=== PATIENT | male | born 1990 | race Two or more races ===

== ENCOUNTER 2024-04-13 21:28 | Observation (INO) | payer MEDICAID, SELFPAY ==
[2024-04-13 21:46] VITALS: BP 162/100; PULSE 110; TEMP 36.8; O2SAT 99; BMI 24.4
--- NOTE | 2024-04-13 22:16 | ED_ITS ---
HPI - Abdominal Pain General Chief Complaint: Abdominal Pain Stated Complaint: Abdominal Pain Time Seen by Provider: 04/13/24 21:35 Source: patient and family Mode of arrival: walk-in Limitations: no limitations History of Present Illness HPI narrative: This 33-year-old male who had a heart transplant in 2003 due to hypertrophic cardiomyopathy at [facility] presents for evaluation of generalized abdominal pain with nausea and vomiting. The patient states he thinks he had a bad steak last Sunday. He states he thought the date on it was April 19 but it was March 19 however his states it was in the freezer. Since that time he has had nausea and vomiting. He has been having a hard time keeping anything down. He urinated earlier today and it was very dark. He states at times his vomitus has been yellow like bile. He has not had any diarrhea. He has been taking Pepto-Bismol to try to cool his stomach down. He denies any chest pain or shortness of breath. He has generalized abdominal pain which is greatest in the epigastrium and right upper quadrant. He states he has had stomach issues in the past that were similar but never this bad. He has not had a fever. He does not drink alcohol. He has not had any jaundice. Related Data Home Medications ?Medication ?Instructions ?Recorded ?Confirmed amlodipine 10 mg tablet mg 04/13/24 cetirizine 10 mg tablet mg 04/13/24 duloxetine 30 mg capsule,delayed mg PO 04/13/24 release escitalopram oxalate 10 mg tablet mg 04/13/24 famotidine 20 mg tablet mg 04/13/24 levothyroxine 50 mcg tablet mcg 04/13/24 mycophenolate mofetil 500 mg tablet PO 04/13/24 simvastatin 10 mg tablet mg 04/13/24 tacrolimus 0.5 mg capsule, mg 04/13/24 immediate-release Allergies Allergy/AdvReac Type Severity Reaction Status Date / Time NSAIDS (Non-Steroidal Allergy Unknown Verified 04/13/24 21:49 Anti-Inflamma Penicillins Allergy Unknown Verified 04/13/24 21:49 Review of Systems ROS Status of ROS 10 or more systems reviewed and unremark able except as noted in history and below Exam Narrative Exam Narrative: Vital signs and Nursing Notes reviewed: He is afebrile, he is tachycardic with a pulse of 110 and blood pressure is elevated at 162/100, he is not hypoxic with pulse ox of 99% on room air General: Awake, alert, oriented, no acute distress, lying comfortably on the stretcher, no active vomiting HEENT: Normocephalic atraumatic, oral mucosa is dry, no scleral icterus noted Neck: Supple, no meningeal signs, no anterior or posterior cervical lymphadenopathy Chest: Lungs are clear to auscultation with good air entry, there is no wheezing rhonchi or rales appreciated no accessory muscle use, patient is speaking in complete sentences-no chest wall tenderness to palpation. Large healed sternotomy incision status post cardiac transplant in 2003 CVS: Regular rate and rhythm S1-S2, cardiac at triage at 110, no murmurs rubs or gallops, pulses are brisk and equal bilaterally ABD: Soft, flat, mildly distended, decreased bowel sounds, there is tenderness in the epigastrium and right upper quadrant with voluntary guarding. No right lower quadrant tenderness appreciated Extremities: Moving all extremities, no lower extremity tenderness or swelling noted, negative Homans' sign, pulses are brisk and equal bilaterally Skin: Normal in appearance without rash,pallor, petechiae or purpura Neuro: No focal deficits Constitutional Vital Signs, click to edit/add: Last Vital Signs Temp 98.2 F 04/13/24 21:46 Pulse 110 H 04/13/24 21:46 Resp 18 04/13/24 21:46 BP 138/72 04/14/24 01:26 Pulse Ox 99 04/13/24 21:46 O2 Del Method Room Air 04/13/24 21:46 Course Vital Signs Vital signs: Vital Signs Temperature 98.2 F 04/13/24 21:46 Pulse Rate 110 H 04/13/24 21:46 Respiratory Rate 18 04/13/24 21:46 Blood Pressure 162/100 H 04/13/24 21:46 Pulse Oximetry 99 04/13/24 21:46 Oxygen Delivery Method Room Air 04/13/24 21:46 Temperature 98.2 F 04/13/24 21:46 Pulse Rate 110 H 04/13/24 21:46 Respiratory Rate 18 04/13/24 21:46 Blood Pressure 138/72 04/14/24 01:26 Pulse Oximetry 99 04/13/24 21:46 Oxygen Delivery Method Room Air 04/13/24 21:46 MDM - Abdominal Pain MDM Narrative Medical decision making narrative: This 33-year-old male who is status post heart transplant in 2003 due to hypertrophic cardiomyopathy presents for evaluation of nausea vomiting and abdominal pain. He thinks that he ate a bad steak last week but has been having nausea vomiting and upper abdominal pain since that time. He has not had any diarrhea. He denies any chest pain or shortness of breath. He has not had a fever. He was tender in his epigastrium and right upper quadrant. He is allergic to NSAIDs. An IV was placed and he was medicated with IV fluids, Zofran and morphine as well as Pepcid. On reevaluation he appeared much more comfortable. Routine labs are reviewed. He has an elevated white count of 18.6. He has a normal hemoglobin. Electrolytes are normal. Lipase is normal. Lactic acid is normal. Alkaline phosphatase was elevated at 125 with remainder of his liver function tests are normal. CT scan of the abdomen pelvis shows findings consistent with acute cholecystitis with several gallstones in the gallbladder and gallbladder wall thickening with surrounding inflammatory changes with a normal common bile duct. This was discussed with Dr. Brown, general surgery on-call. He requested that he receive IV Rocephin and IV Flagyl in the emergency department and admission to the hospitalist service for further surgical evaluation and treatment. Medical Records Medical records narrative: The [address] [address] [address] Scan Report Signed Patient: ARTHUR MCCRARY MR#: [id number] : 1990 Acct:[id number] Age/Sex: 33 / M ADM Date: 04/13/24 Loc: ER Attending Dr: Ordering Physician: Nichole Colón Date of Service: 04/13/24 Procedure(s): CT abdomen pelvis w con Accession Number(s): [id number] cc: GLENN WALKER D.O.~ The [address] [address] Patient Name: ARTHUR MCCRARY MRN: [id number] date: 1990 Sex: M Assigned Patient Location: ER Current Patient Location: ER Accession/Order Number: [id number] Exam Date: 04/13/2024 23:15 Report Date: 04/14/2024 00:42 At the request of: NICHOLE MARKER Procedure: CT abdomen pelvis w con EXAM: CT abdomen pelvis w con HISTORY: abd pain, RUQ, epigastrium COMPARISON: None. TECHNIQUE: CT of abdomen and pelvis with intravenous contrast Dose reduction techniques were achieved by using automated exposure control and/or adjustment of mA and/or kV according to patient size and/or use of iterative reconstruction technique. FINDINGS: TUBES AND IMPLANTS: None. LOWER CHEST: Small hiatal hernia. ABDOMEN and PELVIS ABDOMINAL WALL AND SOFT TISSUES: Unremarkable. BONES: No suspicious lesions. Mild degenerative changes of the spine. ARTERIES: Unremarkable. VEINS: Unremarkable. LYMPH NODES: Unremarkable. PERITONEUM/ RETROPERITONEUM: Unremarkable. BOWEL: No obstruction. Mild diverticulosis. APPENDIX: Unremarkable LIVER: No suspicious lesions. GALLBLADDER: Large gallstone by the gallbladder neck measuring 1.9 centimeters. Multiple additional large layering gallstones. Severe gallbladder wall thickening and surrounding inflammatory changes. BILE DUCTS: Mild intrahepatic biliary ductal dilatation. The common bile duct is not dilated. SPLEEN: Unremarkable. PANCREAS: Unremarkable. ADRENALS: Unremarkable. KIDNEYS/ URETERS: No stones or hydronephrosis. Small left renal cyst. REPRODUCTIVE ORGANS: Unremarkable URINARY BLADDER: Unremarkable. CT/CT abdomen pelvis w con IMPRESSION: Findings compatible with acute cholecystitis. Mild intrahepatic biliary ductal dilatation. The common bile duct is not dilated. Mild diverticulosis. Small hiatal hernia. Electronically authenticated by: JOHN SHAH Date: 04/14/2024 00:42 Lab Data Attestation: I reviewed the patient's lab results. (Patient has an elevated white count at 18.6, normal lactic acid, alk phos is elevated remainder of LFTs and lipase are normal) Labs: Lab Results 04/13/24 Range/Units 22:00 WBC 18.6 H (4.0-11.0) 10^3/uL RBC 4.83 (4.70-6.10) 10^6/uL Hgb 14.8 (14.0-18.0) g/dL Hct 43.8 (42.0-54.0) % MCV 90.7 (80.0-94.0) fL MCH 30.6 (25.9-34.0) pg MCHC 33.8 (29.9-35.2) g/dL RDW 12.5 (11.0-15.0) % Plt Count 200 (150-450) 10^3/uL MPV 12.9 (9.5-13.5) fL Neut % (Auto) 88.6 H (43.0-75.0) % Lymph % (Auto) 5.9 L (20.5-60.0) % [place] % (Auto) 4.5 (1.7-12.0) % Eos % (Auto) 0.2 L (0.9-7.0) % Baso % (Auto) 0.3 (0.2-2.0) % Neut # (Auto) 16.5 H (1.4-6.5) 10^3/uL Lymph # (Auto) 1.1 L (1.2-3.8) 10^3/uL [place] # (Auto) 0.8 (0.3-0.8) 10^3/uL Eos # (Auto) 0.0 (0.0-0.7) 10^3/uL Baso # (Auto) 0.1 (0.0-0.1) 10^3/uL Abs Immat Gran (auto) 0.10 H (0.00-0.03) 10^3/uL Imm/Tot Granulo (auto) 0.5 (0.0-0.5) % Sodium 136 (136-145) mmol/L Potassium 4.1 (3.5-5.1) mmol/L Chloride 100 (98-107) mmol/L Carbon Dioxide 24.9 (21.0-32.0) mmol/L Anion Gap 15.2 BUN 14.0 (7.0-18.0) mg/dL Creatinine 0.77 (0.70-1.30) mg/dL Est GFR ( Amer) >60 (>=60) Est GFR (Non-Af Amer) >60 (>=60) BUN/Creatinine Ratio 18.2 Glucose 90 (74-106) mg/dL Lactate 1.2 (0.4-2.0) mmol/L Calcium 8.9 (8.5-10.1) mg/dL Total Bilirubin 1.0 (0.2-1.0) mg/dL AST 32 (15-37) U/L ALT 39 (16-63) U/L Alkaline Phosphatase 125 H (46-116) U/L Total Protein 8.2 (6.4-8.2) g/dL Albumin 3.0 L (3.4-5.0) g/dL Globulin 5.2 g/dL Albumin/Globulin Ratio 0.6 Lipase 26.0 (16.0-77.0) U/L ECG Data Attestation: I personally reviewed and interpreted this ECG as follows: (Sinus tachycardia 109 bpm, right bundle branch block, left axis deviation, no acute ST segment elevation or T wave inversion) Discharge Plan Discharge Chief Complaint: Abdominal Pain Clinical Impression: Acute cholecystitis Patient Disposition: Admitted as Observation Time of Disposition Decision: 01:10 Condition: Good
[2024-04-13] MEDS: FAMOTIDINE/PF 20 MG/2 ML VIAL IV (22:40)
[2024-04-13] MEDS: 0.9 % SODIUM CHLORIDE 1,000 ML 1000 ML IV (22:40)
[2024-04-13] MEDS: MORPHINE SULFATE 4 MG/ML VIAL IV (22:40)
[2024-04-13] MEDS: ONDANSETRON PF 4 MG/2 ML VIAL IV (22:40)
[2024-04-13 22:47] LABS: Basophils Absolute Auto 0.1 10^3/uL (0.0-0.1); Basophils Percent Auto 0.3 % (0.2-2.0); Eosinophils Percent Auto 0.2 % (0.9-7.0); Hematocrit 43.8 % (42.0-54.0); Hemoglobin 14.8 g/dL (14.0-18.0); Immature Granulocytes Pct Auto 0.5 % (0.0-0.5); Lymphocytes Absolute Auto 1.1 10^3/uL (1.2-3.8); Lymphocytes Percent Auto 5.9 % (20.5-60.0); Mean Corpuscular HGB Conc 33.8 g/dL (29.9-35.2); Mean Corpuscular Hemoglobin 30.6 pg (25.9-34.0); Mean Corpuscular Volume 90.7 fL (80.0-94.0); Mean Platelet Volume 12.9 fL (9.5-13.5); Monocytes Absolute Auto 0.8 10^3/uL (0.3-0.8); Monocytes Percent Auto 4.5 % (1.7-12.0); Neutrophils Absolute Auto 16.5 10^3/uL (1.4-6.5); Neutrophils Percent Auto 88.6 % (43.0-75.0); Platelet Count 200 10^3/uL (150-450); Red Blood Count 4.83 10^6/uL (4.70-6.10); Red Cell Distribution Width 12.5 % (11.0-15.0); White Blood Count 18.6 10^3/uL (4.0-11.0)
[2024-04-13 23:03] LABS: Lactate/Lactic Acid 1.2 mmol/L (0.4-2.0)
[2024-04-13 23:10] LABS: Alanine Aminotransferase 39 U/L (16-63); Albumin Globulin Ratio 0.6; Alkaline Phosphatase 125 U/L (46-116); Anion Gap 15.2; Aspartate Amino Transferase 32 U/L (15-37); BUN Creatinine Ratio 18.2; Calcium 8.9 mg/dL (8.5-10.1); Carbon Dioxide 24.9 mmol/L (21.0-32.0); Chloride 100 mmol/L (98-107); Estimated GFR (African America >60 (>=60); Estimated GFR (Non-African Ame >60 (>=60); Globulin 5.2 g/dL; Glucose 90 mg/dL (74-106); Potassium 4.1 mmol/L (3.5-5.1); Sodium 136 mmol/L (136-145); Total Protein 8.2 g/dL (6.4-8.2)
[2024-04-14] VITALS (16 sets, daily range): BP systolic 127–152; BP diastolic 72–87; PULSE 92–119; TEMP 36.4–37.3; O2SAT 92–96; BMI 24.2
--- NOTE | 2024-04-14 01:06 | ECG_ITS ---
The [facility] Test Date: 2024-04-14 Pat Name: ARTHUR MCCRARY Department: Room: - Gender: Male [place] Head: : 1990 Requested By: GLENN WALKER Order Number: [id number] Reading MD: TAVON KELLY Measurements Intervals [place] Rate: 109 P: 65 MS: 138 QRS: -38 QRSD: 162 T: 69 QT: 392 QTc: 456 Interpretive Statements 1120 Sinus tachycardia 2450 Right bundle branch block 7200 Abnormal left axis deviation 9150 abnormal ECG No previous ECG available for comparison Electronically Signed On 04-15-2024 8:50:48 EDT by TAVON KELLY
[2024-04-14] MEDS: CEFTRIAXONE 1,000 MG in 0.9 % SODIUM CHLORIDE 50 ML 100 MG IV ×2 (01:16→14:38)
[2024-04-14] MEDS: METRONIDAZOLE/SODIUM CHLORIDE 500 MG/100 ML PREMIX 100 MG IV (02:00)
[2024-04-14 02:17] LABS: Bilirubin Urine NEGATIVE (NEGATIVE); Blood Urine TRACE-I (NEGATIVE); Clarity Urine CLEAR (CLEAR); Color Urine YELLOW (YELLOW); Glucose Urine UA NEGATIVE (NEGATIVE); Ketones Urine 40 mg/dL (NEGATIVE); Leukocyte Esterase Urine NEGATIVE (NEGATIVE); Nitrite Urine NEGATIVE (NEGATIVE); Protein Urine 30 mg/dL (NEG/TRACE); pH Urine 6.5 (5.0-9.0)
[2024-04-14 02:30] LABS: Bacteria Urine NONE SEEN #/HPF (NONE SEEN); Mucus Urine SMALL (NONE SEEN); RBC Urine NONE SEEN #/HPF (0-2); Squamous Epithelial Cell Urine NONE SEEN #/LPF (NONE/RARE); WBC Urine 0-2 #/HPF (NONE SEEN)
[2024-04-14 02:31] LABS: Cast Seen? SEEN #/LPF (NONE SEEN); Crystals Seen? None Seen #/HPF (None Seen); Fine Granular Casts Urine FEW; Hyaline Casts Urine FEW; Urine Culture Indicated NO; White Blood Cell Casts Urine FEW
[2024-04-14] MEDS: DEXTROSE 5%-0.9% NACL 1,000 ML 1,000 ML 100 ML IV (02:49)
[2024-04-14] MEDS: MORPHINE SULFATE 2 MG/ML SYRINGE IV (04:52)
[2024-04-14 05:41] LABS: Basophils Absolute Auto 0.1 10^3/uL (0.0-0.1); Basophils Percent Auto 0.4 % (0.2-2.0); Eosinophils Absolute Auto 0.2 10^3/uL (0.0-0.7); Eosinophils Percent Auto 1.2 % (0.9-7.0); Hematocrit 41.8 % (42.0-54.0); Hemoglobin 13.7 g/dL (14.0-18.0); Immature Granulocytes Abs Auto 0.05 10^3/uL (0.00-0.03); Immature Granulocytes Pct Auto 0.4 % (0.0-0.5); Lymphocytes Absolute Auto 1.4 10^3/uL (1.2-3.8); Lymphocytes Percent Auto 10.4 % (20.5-60.0); Mean Corpuscular HGB Conc 32.8 g/dL (29.9-35.2); Mean Corpuscular Hemoglobin 30.2 pg (25.9-34.0); Mean Corpuscular Volume 92.3 fL (80.0-94.0); Mean Platelet Volume 12.2 fL (9.5-13.5); Monocytes Absolute Auto 0.8 10^3/uL (0.3-0.8); Neutrophils Absolute Auto 11.3 10^3/uL (1.4-6.5); Neutrophils Percent Auto 81.6 % (43.0-75.0); Platelet Count 187 10^3/uL (150-450); Red Blood Count 4.53 10^6/uL (4.70-6.10); Red Cell Distribution Width 12.4 % (11.0-15.0); White Blood Count 13.8 10^3/uL (4.0-11.0)
[2024-04-14 05:51] LABS: Alanine Aminotransferase 105 U/L (16-63); Albumin Globulin Ratio 0.6; Albumin Level 2.7 g/dL (3.4-5.0); Alkaline Phosphatase 193 U/L (46-116); Anion Gap 12.5; Aspartate Amino Transferase 103 U/L (15-37); BUN Creatinine Ratio 12.3; Bilirubin Total 1.7 mg/dL (0.2-1.0); Calcium 8.4 mg/dL (8.5-10.1); Carbon Dioxide 28.1 mmol/L (21.0-32.0); Chloride 102 mmol/L (98-107); Estimated GFR (African America >60 (>=60); Estimated GFR (Non-African Ame >60 (>=60); Globulin 4.5 g/dL; Glucose 102 mg/dL (74-106); Potassium 3.6 mmol/L (3.5-5.1); Sodium 139 mmol/L (136-145); Total Protein 7.2 g/dL (6.4-8.2)
--- NOTE | 2024-04-14 06:17 | PM.GSCN ---
History of Present Illness Consult details Consult date: 04/14/24 Reason for consult: gallstones Requesting physician: Nichole Colón Narrative: 33 y/o male presented to ED with complaints of abdominal pain located in the epigastrium right upper quadrant since Sunday after he ate a steak with he thought he had food poisoning from. He admitted to nausea and vomiting and mild fever and chills. He was found to have an elevated white blood count of 18,000 which is down to 13,000 this morning. His liver enzymes were normal last night but this morning he has a slightly elevated bilirubin of 1.7 and alkaline phosphatase is in the 140s as well as other transaminases are elevated. He feels better this morning. His significant medical history is that he has had an open heart transplant performed at the [facility] in 2003 and takes rejection drugs. He sees a media relations intern once a year. He denies any chest pains or shortness of breath but it does hurt to take a deep breath. He is currently unemployed. 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 He denies any tobacco or alcohol use. CT scan of the abdomen and pelvis shows acute cholecystitis with a stone stuck in the fundus of the gallbladder with multiple other small stones seen. There was no common bile duct stone seen or any common bile duct dilatation noted on the CT scan. Review of Systems ROS Status of ROS 10 or more systems reviewed and unremarkable except as noted in history and below [facility] Medical History (Updated 04/14/24 @ 07:37 by Link Brown MD) Hypertrophic cardiomyopathy ?I42.2 - Other hypertrophic cardiomyopathy (ICD-10) Surgical History (Updated 04/14/24 @ 07:37 by Link Brown MD) History of heart transplant ?Z94.1 - Heart transplant status (ICD-10) Heart transplanted ?Z94.1 - Heart transplant status (ICD-10) Family History Mother Family history of CHF (congestive heart failure) Family history of diabetes mellitus Family history of hypertension Social History Within the past year, how often did you have a drink containing alcohol: never Score interpretation: A score less than 4 is consistent with normal alcohol consumption. Smoking status: Former smoker Non-prescribed substance use: denies use Previous occupational history: none Highest level of school completed/degree received: 9th grade Are you now , , , , never or living with a partner: never In a typical week, how many times do you talk on the telephone with family, friends, or neighbors: twice per week How often do you get together with friends or relatives: once per week How often do you attend mandaen or congregation services: never Little interest or pleasure in doing things: not at all Feeling down, depressed, or hopeless: not at all Feel stressed/tense/nervous/anxious/difficulty sleeping: not at all Due to disability, difficulty making decisions: No Do you think of yourself as: straight/heterosexual Gender Identity: male Meds Home Medications and Allergies Home Medications ?Medication ?Instructions ?Recorded ?Confirmed ?Type amlodipine 10 mg tablet 5 mg PO BID 04/13/24 04/14/24 History cetirizine 10 mg tablet 10 mg PO [facility] 04/13/24 04/14/24 History duloxetine 30 mg capsule,delayed 30 mg PO [facility] 04/13/24 04/14/24 History release escitalopram oxalate 10 mg tablet 15 mg PO [facility] 04/13/24 04/14/24 History famotidine 20 mg tablet 20 mg PO BID 04/13/24 04/14/24 History levothyroxine 50 mcg tablet 50 mcg PO [facility] 04/13/24 04/14/24 History mycophenolate mofetil 500 mg tablet 500 mg PO Q12H 04/13/24 04/14/24 History simvastatin 10 mg tablet 10 mg PO [facility] 04/13/24 04/14/24 History tacrolimus 1 mg capsule, 1 mg PO Q12H 04/14/24 04/14/24 History immediate-release Allergies Allergy/AdvReac Type Severity Reaction Status Date / Time NSAIDS (Non-Steroidal Allergy Unknown Verified 04/13/24 21:49 Anti-Inflamma Penicillins Allergy Unknown Verified 04/13/24 21:49 Exam Constitutional Vital Signs, click to edit/add: Last Vital Signs Temp 98.0 F 04/14/24 04:59 Pulse 98 H 04/14/24 04:59 Resp 20 04/14/24 04:59 BP 132/81 04/14/24 04:59 Pulse Ox 96 04/14/24 04:59 O2 Del Method Room Air 04/14/24 04:59 Documenting provider has reviewed patient's vital signs: yes Common normals: no apparent distress, average body habitus, oriented x3, no limitations, healthy appearing, alert and well nourished [facility] Common normals: normocephalic and head/scalp atraumatic Eye Common normals: PERRL, EOMs intact bilaterally and no scleral icterus Respiratory Common normals: clear to auscultation bilaterally Cardio Common normals: regular rate and regular rhythm GI Common normals: Normal to inspection, nondistended, normoactive bowel sounds present and soft to palpation Palpation: guarding in the RUQ Extremity Common normals: normal to inspection and full ROM Neuro Common normals: oriented x3, CN's II-XII intact bilaterally, moves all extremities and no focal motor deficits Results Labs Labs: Abnormal lab results 04/13/24 04/14/24 04/14/24 Range/Units 22:00 01:47 04:25 WBC 18.6 H 13.8 H (4.0-11.0) 10^3/uL RBC 4.53 L (4.70-6.10) 10^6/uL Hgb 13.7 L (14.0-18.0) g/dL Hct 41.8 L (42.0-54.0) % Neut % (Auto) 88.6 H 81.6 H (43.0-75.0) % Lymph % (Auto) 5.9 L 10.4 L (20.5-60.0) % Eos % (Auto) 0.2 L (0.9-7.0) % Neut # (Auto) 16.5 H 11.3 H (1.4-6.5) 10^3/uL Lymph # (Auto) 1.1 L (1.2-3.8) 10^3/uL Abs Immat Gran (auto) 0.10 H 0.05 H (0.00-0.03) 10^3/uL Calcium 8.4 L (8.5-10.1) mg/dL Total Bilirubin 1.7 H (0.2-1.0) mg/dL AST 103 H (15-37) U/L ALT 105 H (16-63) U/L Alkaline Phosphatase 125 H 193 H (46-116) U/L Albumin 3.0 L 2.7 L (3.4-5.0) g/dL Urine Protein 30 A (NEG/TRACE) mg/dL Urine Ketones 40 A (NEGATIVE) mg/dL Urine WBC 0-2 A (NONE SEEN) #/HPF Urine Casts Seen A (NONE SEEN) #/LPF Urine Mucus Small A (NONE SEEN) Diabetes panel 04/13/24 04/14/24 Range/Units 22:00 04:25 Sodium 136 139 (136-145) mmol/L Potassium 4.1 3.6 (3.5-5.1) mmol/L Chloride 100 102 (98-107) mmol/L Carbon Dioxide 24.9 28.1 (21.0-32.0) mmol/L BUN 14.0 10.0 (7.0-18.0) mg/dL Creatinine 0.77 0.81 (0.70-1.30) mg/dL Glucose 90 102 (74-106) mg/dL Calcium 8.9 8.4 L (8.5-10.1) mg/dL AST 32 103 H (15-37) U/L ALT 39 105 H (16-63) U/L Alkaline Phosphatase 125 H 193 H (46-116) U/L Total Protein 8.2 7.2 (6.4-8.2) g/dL Albumin 3.0 L 2.7 L (3.4-5.0) g/dL Calcium panel 04/13/24 04/14/24 Range/Units 22:00 04:25 Calcium 8.9 8.4 L (8.5-10.1) mg/dL Albumin 3.0 L 2.7 L (3.4-5.0) g/dL Pituitary panel 04/13/24 04/14/24 Range/Units 22:00 04:25 Sodium 136 139 (136-145) mmol/L Potassium 4.1 3.6 (3.5-5.1) mmol/L Chloride 100 102 (98-107) mmol/L Carbon Dioxide 24.9 28.1 (21.0-32.0) mmol/L BUN 14.0 10.0 (7.0-18.0) mg/dL Creatinine 0.77 0.81 (0.70-1.30) mg/dL Glucose 90 102 (74-106) mg/dL Calcium 8.9 8.4 L (8.5-10.1) mg/dL Adrenal panel 04/13/24 04/14/24 Range/Units 22:00 04:25 Sodium 136 139 (136-145) mmol/L Potassium 4.1 3.6 (3.5-5.1) mmol/L Chloride 100 102 (98-107) mmol/L Carbon Dioxide 24.9 28.1 (21.0-32.0) mmol/L BUN 14.0 10.0 (7.0-18.0) mg/dL Creatinine 0.77 0.81 (0.70-1.30) mg/dL Glucose 90 102 (74-106) mg/dL Calcium 8.9 8.4 L (8.5-10.1) mg/dL Total Bilirubin 1.0 1.7 H (0.2-1.0) mg/dL AST 32 103 H (15-37) U/L ALT 39 105 H (16-63) U/L Alkaline Phosphatase 125 H 193 H (46-116) U/L Total Protein 8.2 7.2 (6.4-8.2) g/dL Albumin 3.0 L 2.7 L (3.4-5.0) g/dL All other labs normal. Imaging Abdomen CT scan report/results: report reviewed Assessment and Plan Assessment and Plan (1) Acute cholecystitis: (2) History of heart transplant: (3) History of depression: Plan Robotic cholecystectomy with possible open cholecystectomy. Risks benefits and alternatives to surgery may include infection, bleeding, bile duct injury, blood clots to legs or lungs, pneumonia, heart attack, stroke, and/or . Patient understands that if liver enzymes remain elevated after surgery that that could indicate a common bile duct stone and patient may need to be transferred to GI for an ERCP. He voiced understanding of all the above and wished to proceed.
--- NOTE | 2024-04-14 07:22 | PM.HP ---
HPI H&P: HPI History of Present Illness Chief complaint: Abdominal Pain Narrative: Patient is a very pleasant 33 year old male with past medical history of heart transplant for cardiomyopathy at [facility]. He reports yearly follow up's have been good, he also has HLD, depression, GERD and hypothyroidism. He was in his normal state of health until Sunday when he developed RUQ and epigastric pain with nausea/vomiting. No diarrhea, no fevers. He hasn't ate much in the last 5 days. He presented to the ER last night when symptoms got unmanageable. This morning on admission exam he notes abdominal pain. N/V have been controlled with medications. He is NPO for surgery planned for this morning. As a side note, he shut his right hand in the door a few days ago and has some small abrasions but the top of his hand is swollen and sore. We discussed getting a right hand X-ray post-operatively. In the ER his CT was positive for Acute cholecystitis with intrahepatic ductal dilation. WBC's 13.8, Hb 13.7 and AST 103, ALT 105, TB 1.7. He denies alcohol use or history of hepatitis. Dr. Brown of General Surgery was consulted for lap mason, plan to take to surgery this morning. Opioid HPI Opioid Management Most Recent Opioid Data: Last Pain Scale 3 04/14/24 07:00 Last Pain Assessment 04/14/24 07:00 Last MAR Pain Assessment 04/14/24 06:14 Last ORT Total Score 0 04/14/24 02:15 Last ORT Risk Category Low Risk 04/14/24 02:15 Review of Systems ROS Narrative ROS: a complete review of systems were reviewed with patient and are positive as below or listed in History of Chief Complaint. General: no fever, but chills, and night sweats Head: no headache, trauma, visual changes, nausea or vomiting Skin: no reported rashes, itching or sores Eyes: no blurriness of vision Ears: no reported hearing loss, vertigo, earache, or tinnitus Throat: no sore throat, hoarseness, swelling of neck, or tongue pain Heart: no chest pain Lungs: no shortness of breath or cough GI: no diarrhea but vomiting/nausea Urinary: no urinary urgency, frequency or pain Neuro: no numbness or tingling HEM: no bleeding issues or bruising ENDO: thyroid problems Psych: no anxiety but depression PFSH PFS Medical History (Updated 04/14/24 @ 07:47 by Caty Joseph DO) Hypothyroidism (acquired) ?E03.9 - Hypothyroidism, unspecified (ICD-10) Hypertension ?I10 - Essential (primary) hypertension (ICD-10) Hyperlipidemia ?E78.5 - Hyperlipidemia, unspecified (ICD-10) History of depression ?Z86.59 - Personal history of other mental and behavioral disorders (ICD-10) Hypertrophic cardiomyopathy ?I42.2 - Other hypertrophic cardiomyopathy (ICD-10) Surgical History History of heart transplant ?Z94.1 - Heart transplant status (ICD-10) Heart transplanted ?Z94.1 - Heart transplant status (ICD-10) Family History Mother Family history of CHF (congestive heart failure) Family history of diabetes mellitus Family history of hypertension Social History Within the past year, how often did you have a drink containing alcohol: never Score interpretation: A score less than 4 is consistent with normal alcohol consumption. Smoking status: Former smoker Non-prescribed substance use: denies use Previous occupational history: none Highest level of school completed/degree received: 9th grade Are you now , , , , never or living with a partner: never In a typical week, how many times do you talk on the telephone with family, friends, or neighbors: twice per week How often do you get together with friends or relatives: once per week How often do you attend cheondoism or zoroastrian services: never Little interest or pleasure in doing things: not at all Feeling down, depressed, or hopeless: not at all Feel stressed/tense/nervous/anxious/difficulty sleeping: not at all Due to disability, difficulty making decisions: No Do you think of yourself as: straight/heterosexual Gender Identity: male Meds Home Medications and Allergies Home Medications ?Medication ?Instructions ?Recorded ?Confirmed ?Type amlodipine 10 mg tablet 5 mg PO BID 04/13/24 04/14/24 History cetirizine 10 mg tablet 10 mg PO QAM 04/13/24 04/14/24 History duloxetine 30 mg capsule,delayed 30 mg PO QAM 04/13/24 04/14/24 History release escitalopram oxalate 10 mg tablet 15 mg PO QAM 04/13/24 04/14/24 History famotidine 20 mg tablet 20 mg PO BID 04/13/24 04/14/24 History levothyroxine 50 mcg tablet 50 mcg PO QAM 04/13/24 04/14/24 History mycophenolate mofetil 500 mg tablet 500 mg PO Q12H 04/13/24 04/14/24 History simvastatin 10 mg tablet 10 mg PO QAM 04/13/24 04/14/24 History tacrolimus 1 mg capsule, 1 mg PO Q12H 04/14/24 04/14/24 History immediate-release Allergies Allergy/AdvReac Type Severity Reaction Status Date / Time NSAIDS (Non-Steroidal Allergy Unknown Verified 04/13/24 21:49 Anti-Inflamma Penicillins Allergy Unknown Verified 04/13/24 21:49 Exam Narrative Exam Narrative: General: Patient is alert, and oriented to person, place and time with normal affect, proper hygiene Skin: no visible rashes, or ulcers, sternotomy scar present, acne scars on face Head: atraumatic, acephalic Eyes: PERRLA, no nystagmus present, conjunctiva clear, no scleral icterus Ears: normal gross auditory acuity Nose: symmetric, no discharge, no maxillary or frontal sinus tenderness Heart: Normal rate and rhythm, no murmurs/rubs/gallops Lungs: no audible wheezes, crackles and normal breath sounds all lung melchor Abdomen: Normal audible bowel sounds, no distension, No palpable masses, no organomegaly, pain with palpation RUQ and epigastric region Musculoskeletal: no swelling bilateral lower extremities Neuro: CN II-X grossly intact right hand shows 2 small abrasions with top of the hand swelling, swelling does not affect fingers, no bruising. Constitutional Vital Signs, click to edit/add: Last Vital Signs Temp 98.0 F 04/14/24 04:59 Pulse 98 H 04/14/24 04:59 Resp 18 04/14/24 07:13 BP 132/81 04/14/24 04:59 Pulse Ox 96 04/14/24 04:59 O2 Del Method Room Air 04/14/24 04:59 Results Labs Labs: Short CBC 04/13/24 04/14/24 Range/Units 22:00 04:25 WBC 18.6 H 13.8 H (4.0-11.0) 10^3/uL Hgb 14.8 13.7 L (14.0-18.0) g/dL Hct 43.8 41.8 L (42.0-54.0) % Plt Count 200 187 (150-450) 10^3/uL BMP 04/13/24 04/14/24 22:00 04:25 Sodium 136 139 Potassium 4.1 3.6 Chloride 100 102 Carbon Dioxide 24.9 28.1 BUN 14.0 10.0 Creatinine 0.77 0.81 Glucose 90 102 Calcium 8.9 8.4 L Liver Function 04/13/24 04/14/24 Range/Units 22:00 04:25 Total Bilirubin 1.0 1.7 H (0.2-1.0) mg/dL AST 32 103 H (15-37) U/L ALT 39 105 H (16-63) U/L Alkaline Phosphatase 125 H 193 H (46-116) U/L Albumin 3.0 L 2.7 L (3.4-5.0) g/dL Urine 04/14/24 Range/Units 01:47 Urine Color Yellow (YELLOW) Urine Clarity Clear (CLEAR) Urine pH 6.5 (5.0-9.0) Ur Specific [place] 1.010 (1.005-1.025) Urine Protein 30 A (NEG/TRACE) mg/dL Urine Glucose (UA) Negative (NEGATIVE) mg/dL Assessment and Plan Assessment and Plan (1) Acute cholecystitis: Assessment and Plan: as seen on CT scan and clinical picture. Plan for Lap mason today, patient NPO, continue fluids. did receive rocephin and flagyl pre op, will probably require post op antibiotics as well given WBC's. (2) Elevated LFTs: Assessment and Plan: secondary to hepatic inflammation from ductal dilation and acute cystitis, hopefully will resolve after removal of Gallbladder (3) Leukocytosis: Assessment and Plan: due to #1 Qualifiers: Leukocytosis type: unspecified Qualified Code(s): D72.829 - Elevated white blood cell count, unspecified (4) Hypertrophic cardiomyopathy: Assessment and Plan: Cardiac transplant, will resume home medications post op (5) Hyperlipidemia: Assessment and Plan: will continue statin post op Qualifiers: Hyperlipidemia type: unspecified Qualified Code(s): E78.5 - Hyperlipidemia, unspecified (6) Hypertension: Assessment and Plan: will continue amlodipine post op Qualifiers: Hypertension type: primary hypertension Qualified Code(s): I10 - Essential (primary) hypertension (7) Hypothyroidism (acquired): Assessment and Plan: will continue levothyroxine post op Plan patient is a full code patient changed to inpatient today given the severity of his illness and risk for post op complications and requiring IV antibiotics, most likely cross 2 midnights. plan for surgery today
[2024-04-14] MEDS: LACTATED RINGER'S SOLUTION 1,000 ML 50 ML IV ×3 (07:44→11:21)
--- NOTE | 2024-04-14 07:49 | PM.GSPRC ---
Date of procedure: 04/14/24 Indications for Procedure: Acute cholecystitis with cholelithiasis Pre-op diagnosis: Acute cholecystitis with cholelithiasis Post-op diagnosis: same as pre-op Procedure: Robotic cholecystectomy with IC-Green Findings: Acute cholecystitis with cholelithiasis Anesthesia: CARIDAD Surgeon: Link Brown Procedure Summary: After again explaining the risks and benefits of the procedure in the preoperative care unit consent was obtained. ?The patient was taken back to the operative room and placed on the operative room table. General endotracheal anesthesia was induced and preoperative antibiotics were given. ?Appropriate time-out was performed. ?Right arm was?tucked at the side. ?Then the bed was positioned appropriately. ?The abdomen was prepped and draped in normal sterile fashion. A periumbilical incision was made. ?Dissection was carried down to the fascia. ?Fascia was elevated with annette clamps and entered sharply. A 12 mm port was placed into the abdomen and the abdomen was insufflated, there were no complications with insufflation. ?The scope and camera was brought in and then 3 more ports were placed. An 8?mm port was placed in the right lateral position. Two additional?8 mm Davinci ports were placed, 8 cm to the left and one to the right of the umbilicus. ?The patient was then placed in reverse Trendelenburg position and slightly turned to the left. The [employer] robot was docked. The 4th arm was used to grasp the dome of the gallbladder superiorly. ?The peritoneal attachments were taken down with meticulous dissection laterally and medially from the gallbladder. ?At this point the infundibular gallbladder was retracted laterally and a critical view was obtained. ?With the cystic duct inferiorly cystic artery medially and the liver posteriorly. ?Two clips were placed on the patient side and 1 on the specimen side of both the cystic duct and the cystic artery. ?These were then excised. ?The remainder of the gallbladder was taken off of the gallbladder fossa using electrocautery. The gallbladder was then removed through the umbilical port using Endo-Catch bag. ?The gallbladder fossa was visualized again to confirm no bleeding and no leak from the cystic duct. The robot was undocked from the patient. The abdomen was deinsufflated.? The umbilical incision fascia was closed with a [id number] 0 Vicryl. The skin was closed at all the incisions with 4 0 Monocryl. All incisions and underlying muscle was anesthetized with local anesthetic.? Steristrips were then placed over the incisions. The patient was extubated and had no immediate postoperative complications. Patient was taken to the PACU in stable condition. Torts Law Professor: CAROL Luong Estimated blood loss (mL): 50 Specimens: Gallbladder and stones Complications: No Condition: stable Disposition: PACU
[2024-04-14] MEDS: INDOCYANINE GREEN 25 MG VIAL INJ (07:58)
[2024-04-14] MEDS: BUPIVACAINE HCL 0.5% PF 50 MG/10 ML VIAL 20 ML INJ (10:06)
[2024-04-14] MEDS: ONDANSETRON PF 4 MG/2 ML VIAL IV ×2 (11:03→16:38)
--- NOTE | 2024-04-14 14:08 | XR_ITS ---
The [address] [address] Patient Name: ARTHUR MCCRARY MRN: [id number] date: 1990 Sex: M Assigned Patient Location: [place] Current Patient Location: [place] Accession/Order Number: [id number] Exam Date: 04/14/2024 14:20 Report Date: 04/14/2024 15:09 At the request of: IZABEL HAMM Procedure: XR hand RT 2V EXAM: XR hand RT 2V HISTORY: trauma/pain of the right hand COMPARISON: None. TECHNIQUE: 2 views right hand FINDINGS: No acute displaced fracture or dislocation identified. Nonspecific subcutaneous edema about the hand. XR/XR hand RT 2V IMPRESSION: Negative radiographic evaluation for fracture. Electronically authenticated by: SERG BENITEZ Date: 04/14/2024 15:09
[2024-04-14] MEDS: OXYCODONE HCL/ACETAMINOPHEN 5MG/325MG 1 TAB PO ×2 (14:37→23:32)
[2024-04-14] MEDS: FAMOTIDINE 20 MG TABLET PO ×2 (14:37→21:00)
[2024-04-14] MEDS: ESCITALOPRAM 10 MG TABLET 15 MG PO (14:38)
[2024-04-14] MEDS: CETIRIZINE HCL 10 MG TABLET PO (14:38)
[2024-04-14] MEDS: AMLODIPINE BESYLATE 5 MG TABLET PO ×2 (14:38→21:00)
[2024-04-14] MEDS: LEVOTHYROXINE SODIUM 25 MCG TABLET 50 MCG PO (14:39)
[2024-04-14] MEDS: MYCOPHENOLATE MOFETIL 500 MG 500 EACH PO (16:44)
[2024-04-14] MEDS: NON-FORMULARY 1 EACH (Tacrolimus 1 mg capsule) PO (16:44)
[2024-04-14] MEDS: ATORVASTATIN CALCIUM 10 MG TABLET PO (21:00)
[2024-04-15 04:00] VITALS: BP 137/87; PULSE 92; TEMP 36.8; O2SAT 96
[2024-04-15 05:17] LABS: Basophils Percent Auto 0.3 % (0.2-2.0); Eosinophils Absolute Auto 0.2 10^3/uL (0.0-0.7); Eosinophils Percent Auto 1.7 % (0.9-7.0); Hematocrit 41.8 % (42.0-54.0); Hemoglobin 13.8 g/dL (14.0-18.0); Immature Granulocytes Abs Auto 0.04 10^3/uL (0.00-0.03); Immature Granulocytes Pct Auto 0.4 % (0.0-0.5); Lymphocytes Absolute Auto 1.4 10^3/uL (1.2-3.8); Lymphocytes Percent Auto 15.3 % (20.5-60.0); Mean Corpuscular Hemoglobin 30.1 pg (25.9-34.0); Mean Corpuscular Volume 91.1 fL (80.0-94.0); Mean Platelet Volume 11.7 fL (9.5-13.5); Monocytes Absolute Auto 0.7 10^3/uL (0.3-0.8); Monocytes Percent Auto 7.9 % (1.7-12.0); Neutrophils Absolute Auto 6.8 10^3/uL (1.4-6.5); Neutrophils Percent Auto 74.4 % (43.0-75.0); Platelet Count 201 10^3/uL (150-450); Red Blood Count 4.59 10^6/uL (4.70-6.10); Red Cell Distribution Width 12.1 % (11.0-15.0); White Blood Count 9.1 10^3/uL (4.0-11.0)
[2024-04-15] MEDS: LEVOTHYROXINE SODIUM 25 MCG TABLET 50 MCG PO (05:35)
[2024-04-15 05:36] LABS: Alanine Aminotransferase 99 U/L (16-63); Albumin Globulin Ratio 0.5; Albumin Level 2.5 g/dL (3.4-5.0); Alkaline Phosphatase 194 U/L (46-116); Anion Gap 8.9; Aspartate Amino Transferase 42 U/L (15-37); BUN Creatinine Ratio 6.8; Bilirubin Total 0.8 mg/dL (0.2-1.0); Calcium 8.6 mg/dL (8.5-10.1); Carbon Dioxide 30.4 mmol/L (21.0-32.0); Chloride 102 mmol/L (98-107); Estimated GFR (African America >60 (>=60); Estimated GFR (Non-African Ame >60 (>=60); Globulin 4.8 g/dL; Glucose 112 mg/dL (74-106); Potassium 3.3 mmol/L (3.5-5.1); Sodium 138 mmol/L (136-145); Total Protein 7.3 g/dL (6.4-8.2)
[2024-04-15] MEDS: LACTATED RINGER'S SOLUTION 1,000 ML 50 ML IV (05:36)
[2024-04-15 08:27] VITALS: BP 146/82; PULSE 93; TEMP 36.6; O2SAT 95
[2024-04-15] MEDS: ESCITALOPRAM 10 MG TABLET 15 MG PO (08:48)
[2024-04-15] MEDS: AMLODIPINE BESYLATE 5 MG TABLET PO (08:48)
[2024-04-15] MEDS: FAMOTIDINE 20 MG TABLET PO (08:48)
[2024-04-15] MEDS: CETIRIZINE HCL 10 MG TABLET PO (08:49)
[2024-04-15] MEDS: OXYCODONE HCL/ACETAMINOPHEN 5MG/325MG 1 TAB PO (08:49)
--- NOTE | 2024-04-15 08:54 | P.DS_ITS ---
DS: Providers Provider Date of admission: 04/14/24 07:52 Primary care physician: GLENN WALKER DO Admitting clinician: Caty Joseph Consults: 04/14/24 01:28 Consult to General Surgeon Routine Consulting Provider: Link Brown Reason for consultation: Acute cholecystitis Has provider been notified: Yes Discharging clinician: Caty Joseph DS: Diagnosis Discharge Diagnosis (1) Acute cholecystitis: (2) Elevated LFTs: (3) Leukocytosis: Qualifiers: Leukocytosis type: unspecified Qualified Code(s): D72.829 - Elevated white blood cell count, unspecified (4) Hypertrophic cardiomyopathy: (5) Hyperlipidemia: Qualifiers: Hyperlipidemia type: unspecified Qualified Code(s): E78.5 - Hyperlipidemia, unspecified (6) Hypertension: Qualifiers: Hypertension type: primary hypertension Qualified Code(s): I10 - Essential (primary) hypertension (7) Hypothyroidism (acquired): (8) History of heart transplant: (9) History of depression: DS: Summary Hospital Course Hospital Course: Patient is a very pleasant 33 year old male with past medical history of heart transplant for cardiomyopathy at [facility]. He reports yearly follow up's have been good, he also has HLD, depression, GERD and hypothyroidism. He was in his normal state of health until Sunday when he developed RUQ and epigastric pain with nausea/vomiting. No diarrhea, no fevers. He hasn't ate much in the last 5 days. He presented to the ER when symptoms got unmanageable. In the ER his CT was positive for Acute cholecystitis with intrahepatic ductal dilation. WBC's 13.8, Hb 13.7 and AST 103, ALT 105, TB 1.7. He denies alcohol use or history of hepatitis. Dr. Brown of General Surgery w as consulted for lap mason, and had Lap mason yesterday. Today is POD #1, pain is controlled, patient is walking around, passing flatulence and has been tolerating food, afebrile overnight. Normal WBC's this morning and liver enzymes improving with Total bilirubin being normal. He will be discharged home today with close follow up with Dr. Brown. Discussed having CMP done in the next 1-2 weeks to make sure elevated LFT's have resolved. As a side note, he shut his right hand in the door a few days ago and has some small abrasions but the top of his hand is swollen and sore, right hand X-ray negative for fracture. He is to return to the ER with any worsening signs or symptoms. Status at Discharge Functional status at discharge: independent ambulation Overall status at discharge: patient is progressing back to baseline Time Spent with Patient Time attestation: Total time spent providing and/or coordinating discharge services: Time spent: greater than 30 minutes Exam Narrative Exam Narrative: General: Patient is alert, and oriented to person, place and time with normal affect, proper hygiene Skin: no visible rashes, or ulcers, sternotomy scar present, acne scars on face, abdomen/port locations are c/d/i Head: atraumatic, acephalic Eyes: PERRLA, no nystagmus present, conjunctiva clear, no scleral icterus Ears: normal gross auditory acuity Nose: symmetric, no discharge, no maxillary or frontal sinus tenderness Heart: Normal rate and rhythm, no murmurs/rubs/gallops Lungs: no audible wheezes, crackles and normal breath sounds all lung melchor Abdomen: Normal audible bowel sounds, no distension, No palpable masses, no organomegaly, pain:mild diffuse tenderness Musculoskeletal: no swelling bilateral lower extremities Neuro: CN II-X grossly intact right hand shows 2 small abrasions with top of the hand swelling, swelling does not affect fingers, no bruising. Constitutional Vital Signs, click to edit/add: Last Vital Signs Temp 97.8 F 04/15/24 08:27 Pulse 93 H 04/15/24 08:27 Resp 16 04/15/24 08:29 BP 146/82 H 04/15/24 08:27 Pulse Ox 95 04/15/24 08:27 O2 Del Method Room Air 04/15/24 08:27 DS: Data Data Completed and Pending Labs on day of discharge: Labs from last 24 hours 04/15/24 04:50 WBC 9.1 RBC 4.59 L Hgb 13.8 L Hct 41.8 L MCV 91.1 MCH 30.1 MCHC 33.0 RDW 12.1 Plt Count 201 MPV 11.7 Neut % (Auto) 74.4 Lymph % (Auto) 15.3 L [place] % (Auto) 7.9 Eos % (Auto) 1.7 Baso % (Auto) 0.3 Neut # (Auto) 6.8 H Lymph # (Auto) 1.4 [place] # (Auto) 0.7 Eos # (Auto) 0.2 Baso # (Auto) 0.0 Abs Immat Gran (auto) 0.04 H Imm/Tot Granulo (auto) 0.4 Sodium 138 Potassium 3.3 L Chloride 102 Carbon Dioxide 30.4 Anion Gap 8.9 BUN 5.0 L Creatinine 0.74 Est GFR ( Amer) >60 Est GFR (Non-Af Amer) >60 BUN/Creatinine Ratio 6.8 Glucose 112 H Calcium 8.6 Total Bilirubin 0.8 AST 42 H ALT 99 H Alkaline Phosphatase 194 H Total Protein 7.3 Albumin 2.5 L Globulin 4.8 Albumin/Globulin Ratio 0.5 Discharge Plan Discharge Disposition: Home, Self-Care Condition: Good Discharge Medications: Continued cetirizine 10 mg tablet 10 mg PO QAM simvastatin 10 mg tablet 10 mg PO QAM mycophenolate mofetil 500 mg tablet 500 mg PO Q12H famotidine 20 mg tablet 20 mg PO BID amlodipine 10 mg tablet 5 mg PO BID levothyroxine 50 mcg tablet 50 mcg PO QAM escitalopram oxalate 10 mg tablet 15 mg PO QAM duloxetine 30 mg capsule,delayed release(DR/EC) 30 mg PO QAM tacrolimus 1 mg capsule 1.5 mg PO Q12H Activity: increase activity as tolerated Diet: advance to your usual diet Print Language: Vietnamese Patient Instructions: Exploratory Laparoscopy (DC) Forms: Portal Instructions Follow Up Appointments: April 29 @ 11:45am with Dr. Brown [address] [facility] [phone]
[2024-04-15] MEDS: TACROLIMUS 1.5 MG 1.5 EACH PO (10:29)
[2024-04-15] MEDS: MYCOPHENOLATE MOFETIL 500 MG 500 EACH PO (10:29)
--- NOTE | 2024-04-15 11:25 | CM.NOTE ---
Rounds made with Dr. Joseph, pt will discharge to home this afternoon. Pt will f/u with Dr. Brown and javed PCP. No other discharge needs identified.
--- NOTE | 2024-04-16 13:58 | CM.DCFOLLOWU ---
Person spoke with: patient How are you feeling? well How is your pain? minimal, getting up and walking and drinking fluids Did you understand your discharge instructions? yes Do you have any questions about your discharge instructions? no Were you given any prescriptions at discharge? no prescriptions Were you able to get your prescriptions filled? N/A Do you understand how to take your medications as ordered? yes Do you have any questions about your follow up appointment and do you plan to keep your follow up appointment? no questions, follow up apt reviewed Is there anything else that you would like to discuss? no Questions/Comments/Concerns/Other: N/A
== END 2024-04-15 13:13 | disposition home or self-care (01) ==
LOC: ER 04-14 01:10 → MS 04-14 02:04
PROVIDERS: Registered Nurse; Surgery; Admitting Provider Family Medicine; Emergency Provider Emergency Medicine; PCP Family Medicine; Visit Provider Family Medicine
PROC: (CPT 790; principal; 2024-04-14 08:00)
DX: K80.00 Calculus of gallbladder with acute cholecystitis without obstruction (principal); E78.5 Hyperlipidemia, unspecified; F32.A Depression, unspecified; K21.9 Gastro-esophageal reflux disease without esophagitis; E03.9 Hypothyroidism, unspecified; R79.89 Other specified abnormal findings of blood chemistry; D72.829 Elevated white blood cell count, unspecified; I42.2 Other hypertrophic cardiomyopathy; Z94.1 Heart transplant status; Z87.891 Personal history of nicotine dependence; Z79.899 Other long term (current) drug therapy; Z79.890 Hormone replacement therapy
CPT/HCPCS: 47562; 36415; 73120; 74177; 80053; 81001; 83605; 83690; 85025; 88304; 93005; 96361; 96365; 96367; 96375; 96376; 99285; G0378; J1170; J2704; Q9967